=== PATIENT | female | born 1985 | race Asian ===

== ENCOUNTER 2017-11-29 10:22 | Inpatient (IN) | payer OTHER ==
[~2017-11-29] VITALS: Ht 157.5 cm; Wt 61.6 kg
[2017-12-05 20:38] LABS: ABSOLUTE BASOPHIL COUNT 0 /CUMM (0.0-0.2); ABSOLUTE EOSINOPHIL COUNT 0 /CUMM (0.0-0.7); ABSOLUTE GRANULOCYTE CT 5.5 /CUMM (1.4-6.5); ABSOLUTE LYMPH COUNT 2.2 /CUMM (1.2-3.4); ABSOLUTE MONOCYTE COUNT 0.4 /CUMM (0.10-0.60); BASOPHIL % 0.4 % (0.0-2.0); EOSINOPHIL % 0.4 % (0-5); GRANULOCYTE % 67.8 % (42.2-75.2); HEMATOCRIT 37.6 % (37-47); MEAN CORPUSCULAR HGB 30.6 PG (27.0-31.0); MEAN CORPUSCULAR HGB CONC 32.3 G/DL (33.0-37.0); MEAN CORPUSCULAR VOLUME 94.7 FL (81.0-99.0); MEAN PLATELET VOLUME 9.3 FL (7.4-10.4); PLATELET COUNT 204 /CUMM (130-400); RED BLOOD CELL CT 3.97 /CUMM (4.20-5.40); WHITE BLOOD CELL COUNT 8.1 /CUMM (4.8-10.8)
--- NOTE | 2017-12-06 07:55 | History & Physical ---
General Information and HPI MD Statement: I have seen and personally examined KATLYN SCHAFER and documented this H&P. The patient is a 32 year old female at [40] weeks and [6] days gestation who presented with a chief complaint of [postdates]. History of Present Illness: Patient is a 32-year-old 1 para 0 LMP 02/23/2017 EDC 11/30/2017 at 40 weeks and 6 days who presents to labor and delivery for induction of labor secondary to postdates. She is a poor Tellez score and received misoprostol overnight. Today she will undergo IV Pitocin induction of labor. Of note she has a borderline pelvis and therefore will be aware of possible cephalopelvic disproportion. 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 EENTM: Reports: no symptoms. Cardiovascular: Reports: no symptoms. Respiratory: Reports: no symptoms. GI: Reports: no symptoms. Genitourinary: Reports: no symptoms. Musculoskeletal: Reports: no symptoms. Skin: Reports: no symptoms. Neurological/Psychological: Reports: no symptoms. Hematologic/Endocrine: Reports: no symptoms. Immunologic/Allergic: Reports: no symptoms. All Other Systems: Reviewed and Negative Exam & Diagnostic Data Last 24 Hrs of Vital Signs/I&O Intake & Output 12/06 0800 12/06 0000 12/05 1600 Intake Total Output Total Balance Patient 136 lb Weight Obstetric Exam Wgt Gained During : 25 pounds Pelvimetry: Borderline gynecoid Dilation (cm): 0 Effacement (%): 50 Station: -3 Membranes: intact Fluid: unknown Fundal Height (cm): 41 Multiple Gestation? No Contractions: Every 3 minutes Infant #1 - FHR Baseline: 140 Category: 1 Estimated Weight: 7 pounds Presentation: Cephalic Patient for Induction? Yes Tellez Score Tellez Score Response Value Cervix Position: posterior 0 Cervix Consistency: firm 0 Cervix Effacement: 30-50% 1 Cervix Dilation: closed 0 Cervix Station: -3 0 Total 1 Physical Exam: HEENT normocephalic atraumatic Chest: Clear to auscultation bilaterally Cardiovascular: Normal S1, S2 Abdomen: Cephalic estimated weight 7-7 and half pounds Pelvic: Closed 50% effaced -3 Extremities: No clubbing cyanosis or edema Neurologic: Nonfocal Labs Blood Type & Rh: B+ Antibody Screen: Negative Hct/Hgb & Platelets #1: 11, 36, 270 Hct/Hgb & Platelets #2: 11, 33, 255 Rubella: Immune VDRL #1: Nonreactive VDRL #2: Nonreactive HbsAg: Negative HIV #1: Negative HIV #2 Negative 1 Hr P Group B Strep: Negative Initial Ultrasound: The normal limits Anatomy Ultrasound: Within normal limits Ultrasound for EFW: 6-10/08 Genetic Testing: Negative Last 24 Hrs of Labs/Rai: Laboratory Tests 12/05/171939: CBC w Diff NO MAN DIFF REQ, RBC 3.97 L, MCV 94.7, MCH 30.6, MCHC 32.3 L, RDW 15.0 H, MPV 9.3, Gran % 67.8, Lymphocytes % 26.7, Monocytes % 4.7, Eosinophils % 0.4, Basophils % 0.4, Absolute Granulocytes 5.5, Absolute Lymphocytes 2.2, Absolute Monocytes 0.4, Absolute Eosinophils 0, Absolute Basophils 0, Urine Color YEL, Urine Clarity CLEAR, Urine pH 7.0, Ur Specific [place] 1.015, Urine Protein NEG, Urine Ketones NEG, Urine Nitrite NEG, Urine Bilirubin NEG, Urine Urobilinogen 0.2, Ur Leukocyte Esterase NEG, Ur Microscopic EXAM NOT REQUIRED, Urine Hemoglobin NEG, Urine Glucose NEG Assessment/Plan Assessment/Plan: Postdates poor Tellez score status post misoprostol Plan: Pitocin induction of labor As Ranked By This Provider Problem List: 1. Post-dates Core Measures Venous Thromboembolism VTE Risk Factors / No Mechanical VTE Prophylaxis d/t LowRisk-No Interven Req'd No VTE Pharm Prophylaxis d/t Bleeding (Active)
[2017-12-06 18:22] VITALS: BP 113/64
--- NOTE | 2017-12-06 18:25 | Operative Report ---
Operative/Inv Procedure Report Surgery Date: 12/06/17 Name of Procedure: Primary Pre-Operative Diagnosis: Failure to progress, cephalopelvic disproportion Post-Operative Diagnosis: Cephalic pelvic disproportion Estimated Blood Loss: 650.00 Surgeon/Senior Vice President & General Counsel: Timothy Gamble MD,Tanmay Bond M.D. Anesthesia: spinal Operative/Procedure Note Note: The patient is brought to the operating room placed on the OR table in the sitting position where she underwent spinal anesthetic without complication. He denied boots were placed and activated. She was repositioned into dorsal supine with a block under her right. Matthew catheter was placed into the bladder and drained clear yellow urine. The abdomen was prepped and draped in usual sterile fashion. The skin was tested and a Pfannenstiel skin incision was made with the scalpel and taken down to the layer of the fascia. The fascia was nicked in the midline and extended bilaterally. The underlying rectus muscles were and the peritoneal cavity was entered bluntly. A [place] bladder blade was inserted to protect the bladder from the operative field. A bladder flap was created using Metzenbaum scissors and this was placed behind the Carlos bladder blade. A low transverse uterine incision was made with the scalpel and the uterine cavity was entered bluntly. The incision was extended and a liveborn male infant was delivered atraumatically and handed off to the waiting dish room worker. The placenta was manually removed intact with three-vessel cord. The uterus was then exteriorized and wiped clean with a wet lap sponge. The uterine incision was closed in 2 layers of 0 Polysorb second imbricating the first. Hemostasis was good the abdomen and pelvis were copiously irrigated with warm saline. The uterus is placed back into the abdominal cavity and the suture line was once again visualized. There was one bleeding area treated with a urinate suture of 0 Polysorb. The rectus muscles were then reapproximated using 0 Polysorb in an interrupted and mattress suture. Fascia was closed using 0 Polysorb in a running nonlocking fashion. Subcutaneous tissues were irrigated and coagulated were needed and the skin was closed with 4-0 Polysorb in a subcuticular stitch. A dry sterile dressing was applied to the wound the patient's at fundus was expressed and she was transferred to the recovery room in satisfactory condition. All needle, sponge, and inspected counts were correct at the end of the procedure 4.
[2017-12-07 08:47] LABS: ABSOLUTE BASOPHIL COUNT 0.1 /CUMM (0.0-0.2); ABSOLUTE EOSINOPHIL COUNT 0 /CUMM (0.0-0.7); ABSOLUTE MONOCYTE COUNT 0.6 /CUMM (0.10-0.60); BASOPHIL % 0.5 % (0.0-2.0)
[2017-12-07 09:37] LABS: ABSOLUTE GRANULOCYTE CT 10.9 /CUMM (1.4-6.5); ABSOLUTE LYMPH COUNT 1.4 /CUMM (1.2-3.4); EOSINOPHIL % 0.1 % (0-5); GRANULOCYTE % 83.8 % (42.2-75.2); HEMATOCRIT 34.7 % (37-47); MEAN CORPUSCULAR HGB 31.8 PG (27.0-31.0); MEAN CORPUSCULAR HGB CONC 33.5 G/DL (33.0-37.0); MEAN CORPUSCULAR VOLUME 94.9 FL (81.0-99.0); MEAN PLATELET VOLUME 9.8 FL (7.4-10.4); RBC DISTRIBUTION WIDTH 15.4 % (11.5-14.5); RED BLOOD CELL CT 3.65 /CUMM (4.20-5.40)
[2017-12-07 10:06] LABS: WHITE BLOOD CELL COUNT 12.9 /CUMM (4.8-10.8)
[2017-12-07 10:40] LABS: PLATELET COUNT 183 /CUMM (130-400)
--- NOTE | 2017-12-07 11:40 | PN- Post Delivery/GYN ---
Subjective Subjective: NO COMPLAINTS Objective Last 24 Hrs of Vital Signs/I&O Vital Signs Date Time Temp Pulse Resp B/P B/P Pulse O2 O2 Flow FiO2 Mean Ox Delivery Rate 12/06 1822 113/64 Physical Exam: PE THIN FEMALE ABD SOFT NT FUNDUS FIRM NT LOCHIA MINIMAL INCISION CDI EXT - EDEMA -HOMANS Assessment/Plan Assessment/Plan ASSESS S/P C/S PLAN CONT PPC ADVANCE DIET ADVANCE AMBULATION
--- NOTE | 2017-12-08 10:37 | PN- Post Delivery/GYN ---
Subjective Subjective: NO COMPLAINTS Objective Last 24 Hrs of Vital Signs/I&O PER CHART Physical Exam: PE THIN [place] FEMALE IN NAD ABD SOFT NT INCISION CDI EXT -EDEMA -HOMANS Assessment/Plan Assessment/Plan ASSESS S/P C/S PLAN CONT PPC
--- NOTE | 2017-12-08 14:45 | ULTRASOUND REPORT ---
EXAMINATION: US TRIPLEX OF LOWER EXTREMITIES, BILATERAL CLINICAL INFORMATION: 32-year-old woman with bilateral calf pain post . COMPARISON: None TECHNIQUE: Color-flow triplex imaging with spectral analysis and compression Doppler were performed on the lower extremities. FINDINGS: Respiratory variation, normal compression and augmented flow are noted throughout the lower extremities. The visualized common femoral vein, superficial femoral vein, profunda femoral vein, popliteal vein and midcalf peroneal and posterior tibial venous segments show no evidence of deep venous thrombosis. There is no Cooper's cyst. IMPRESSION: Normal triplex scan without evidence of deep venous thrombosis involving the lower extremities.
[2017-12-09] MEDS ORDERED: DOCUSATE SODIU100 M3 PO (09:08)
[2017-12-09] MEDS ORDERED: IBUPROFEN800 M1 PO (09:08)
[2017-12-09] MEDS ORDERED: PERCOCET 5-3251 EACH PO (09:08)
== END 2017-12-09 12:45 | DRG 766 ==
LOC: CBCO 10:22 → GNO 12-05 19:00
PROVIDERS: Obstetrics & Gynecology; Specialist
PROC: 3E0P7VZ Introduction of Hormone into Female Reproductive, Via Natural or Artificial Opening (ICD-10-PCS; principal; 2017-12-06)
PROC: 10D00Z1 Extraction of Products of Conception, Low, Open Approach (ICD-10-PCS; principal; 2017-12-06)
PROC: 3E033VJ Introduction of Other Hormone into Peripheral Vein, Percutaneous Approach (ICD-10-PCS; principal; 2017-12-06)
DX: O33.9 Maternal care for disproportion, unspecified (principal); O48.0 Post-term pregnancy; O62.1 Secondary uterine inertia; Z3A.40 40 weeks gestation of pregnancy; Z37.0 Single live birth
CPT/HCPCS: GNOP; GNOS; 36415; 81003; 87086; 93970; G0463; J0690; J1650; J1885; J3105; J7120